=== PATIENT | male | born 1955 | race Caucasian/White ===

== ENCOUNTER 2018-01-12 10:11 | Emergency (ER) | END 2018-01-12 11:25 | disposition home or self-care (01) ==

== ENCOUNTER 2018-01-31 14:56 | Inpatient (IN) | END 2018-02-06 16:00 | disposition home or self-care (01) | DRG 419 ==

== ENCOUNTER 2018-05-20 10:38 | Emergency (ER) | END 2018-05-20 14:03 | disposition home or self-care (01) ==